=== PATIENT | female | born 1995 | race Caucasian/White ===

== ENCOUNTER 2019-05-06 20:20 | Emergency (ER) | payer BC ==
[2019-05-06] MEDS ORDERED: NS 0.9% 1000 ML** 2,000 ML IV ONE (20:42)
[2019-05-06] MEDS ORDERED: Famotidine IV* 10 MG/ML 2 ML (20 mg) IV ONE (20:42)
[2019-05-06] MEDS ORDERED: diPHENhydraMINE IV* 50 MG/ML 1 ml VIAL (BENADRYL) IV ONE (20:42)
[2019-05-06] MEDS ORDERED: methylPREDNISolone 125 MG* 2 ML VIAL IV ONE (20:42)
--- NOTE | 2019-05-06 20:50 | ED ---
Allergic Reaction/Systemic - HPI Summary HPI Summary: This patient is a 24 year old F presenting to [facility] with a chief complaint of allergic reaction occurring at 19:50. Pt has mass cell activation syndrome. Pt was on her way to the hospital to visit a friend when she started to feel tired. Pt reports stomach cramping, chest pain, throat tightness, itchiness and thats when she injected herself with the epi pen. Pt usually gets hives on face, and chest but she injected herself before their appearance. Pt went into her first anaphylactic reaction in March 2019. Since then went into anaphylaxis 8/ 9 times, in April. Pt has had one previous episode of recurring anaphylaxis in the beginning of April, where pt went into anaphylaxis 4 times in the span of 30 hours, was admitted to an ICU in [facility] where she is from and was diagnosed with vocal cord dysfunction. Pts doctor is from [facility]. Pt takes Famotidine 20 mg twice a day, and Ewa 360 mg twice a day, Omeprazole DR 20mg bid, Nystatin 500,000U bid, Wellbutrin 100mg ad, Propranolol 80mg q hs, OCP, hydroxyzine 50mg qhs, Effrexor ER 150mg or 75mg alternating 1 hs, Diltiazem 24HR ER 120mg, IC Cromolyn 100mg/5ml Tid ac and hs. Pt also takes albuterol inhaler prn or neb solution prn, propranolol 40mg if SVT sxs prn, and hyoscyamine 0.125mg tid prn. Pt always carries two Epipens. Home Medications Medication Instructions Recorded Confirmed Type EPINEPHrine [Epipen] 0.3 mg SUBCUT ONCE PRN #2 05/06/19 Rx auto.injct - History of Current Complaint Chief Complaint: EDAllergicReaction Time Seen by Provider: 05/06/19 20:36 Hx Obtained From: Patient Onset/Duration: Sudden Onset, Started minutes ago - 19:50, Resolved Timing: Lasting Minutes Severity Initially: Severe Severity Currently: Severe Pain Intensity: 8 Pain Scale Used: 0-10 Numeric Aggravating Factor(s): Nothing Alleviating Factor(s): Epinephrine Associated Signs And Symptoms: Positive: Abdominal Pain, Chest Pain, Difficulty Breathing, Other: - pos - itchiness - Allergies/Home Medications Allergies/Adverse Reactions: Allergies Allergy/AdvReac Type Severity Reaction Status Date / Time aripiprazole [From Abilify] Allergy Unknown Verified 05/06/19 20:29 Reaction Details nortriptyline Allergy Unknown Verified 05/06/19 20:29 Reaction Details omalizumab [From Xolair] Allergy Anaphylatic Verified 05/06/19 20:28 Shock PMH/Surg Hx/FS Hx/Imm Hx Previously Healthy: No Endocrine/Hematology History: Reports: Other Endocrine/Hematological Disorders - thrombocytopenia, leukopenia Cardiovascular History: Reports: Other Cardiovascular Problems/Disorders - Inappropriate Sinus Tachycardia Respiratory History: Reports: Hx Asthma GI History: Reports: Hx Gastroesophageal Reflux Disease, Hx Ulcer, Other GI Disorders - celiac ds History: Reports: Other Problems/Disorders - interstitial cystitis, ovarian cysts, pelvic congestion syndrome EENT History: Reports: Other - Vocal Cord Dysfunction, thymoma Neurological History: Reports: Other Neuro Impairments/Disorders - Vertigo Psychiatric History: Reports: Hx Anxiety, Hx Depression - Surgical History Surgical History: Yes Surgery Procedure, Year, and Place: Ear Tubes, 1999; Complete Hysterectomy and Salpingectomy 2017, upper endoscopies, bilat knee surgeries, D&C's, exploratory abdominal surgery, wisdom teet, thymoma core needle biopsy. Infectious Disease History: Yes Infectious Disease History: Denies: Traveled Outside the [place] in Last 30 Days Review of Systems Positive: Other - pos - itchiness, neg - hives ENT: Other - pos - throat tightness Positive: Chest Pain Respiratory: Negative Positive: Other - neg wheezes Positive: Abdominal Pain Positive: no symptoms reported Musculoskeletal: Negative Positive: Other - no urticaria . Negative: Rash Neurological: Other - dizziness Psychological: Normal All Other Systems Reviewed And Are Negative: Yes Physical Exam - Summary Physical Exam Summary: Appearance: well-appearing, no pain distress, obese, in no obvious distress Skin: Warm, color reflects adequate perfusion, dry, no urticaria, injection site of Epipen left lateral thigh Head: Normal Head/Face inspection, atraumatic Eyes: Conjunctiva clear ENT: Normal inspection. Pharynx clear, no swelling, uvula midline. Neck: Supple, no nodes, no JVD Respiratory: Lungs clear, normal breath sounds, no respiratory distress Cardio: RRR, No murmur, pulses normal, brisk capillary refill Abdomen: Soft, nontender Bowel sounds: Present Musculoskeletal: Strength Intact/ROM intact, no calf tenderness, no edema. Psychological: Normal Neuro: Alert, muscle tone normal, no focal deficit Triage Information Reviewed: Yes Vital Signs On Initial Exam: Initial Vitals Temp Pulse Resp BP Pulse Ox 97.5 F 110 20 150/97 98 05/06/19 20:20 05/06/19 20:20 05/06/19 20:20 05/06/19 20:20 05/06/19 20:20 Vital Signs Reviewed: Yes Diagnostics - Vital Signs Vital Signs Temp Pulse Resp BP Pulse Ox 05/06/19 20:20 97.5 F 110 20 150/97 98 - Laboratory Result Diagrams: 05/06/19 21:15 05/06/19 21:15 Lab Statement: Any lab studies that have been ordered have been reviewed, and results considered in the medical decision making process. Re-Evaluation - Re-Evaluation First Eval Re-Evaluation Time: 22:20 Change: Worse Comment: Pt states she is "itchy" again, slight throat tightness. No hives. Declines additional Epinephrine at this time. No uvula edema. Lungs clear. P 93. Pt advised to notify staff if sxs worsen. Allergic Reaction Course/Dx - Course Course Of Treatment: 24 yo F with hx mast cell activation syndrome, first dx'd in March 2019. Pt is managed by an pattern finisher in [facility] where she lives. Pt has had anaphylaxis 8-9 times since diagnosis. Pt had an ICU admission in early April x 3 days. She has never been intubated. Pt on allergy meds and famotidine to try to prevent this, but still gets sxs. Pt felt sxs tonight and self administered Epi-pen and took benadryl 100mg po. In ED pt had no hives, no chest pain, no throat tightness, no wheezes, and uvula was midline without edema. Pt was given benadryl 50mg IV, solumedrol 125mg IV, and famotidine 20mg IV. She also requested zofran, given 4mg IV. At 22:20 pt felt itchy but declined additional medications. Care signed out to Dr. Brizuela, pending additional observation. Pt states she often is observed for 6 hrs in an ED. - Diagnoses Differential Diagnosis/HQI/PQRI: Positive: Anaphylaxis, Bronchospasm, Urticaria Provider Diagnoses: Mast cell activation syndrome Discharge - Sign-Out/Discharge Documenting (check all that apply): Sign-Out Patient - Patient is signed out to Dr. Brizuela at shift change at 2200, pending observation. Signing out patient TO: Lorenza Brizuela - 22:00 05/06/19, pending observation for anaphylaxis - Discharge Plan Prescriptions: EPINEPHrine [Epipen] 0.3 mg SUBCUT ONCE PRN #2 auto.injct PRN Reason: Allergy Symptoms Referrals: [facility] [employer] [Outside] - If Needed () Additional Instructions: Have definite follow up with your pattern finisher in [place] as soon as you get home. Return to the ER if any new or worsening symptoms. - Attestation Statements Document Initiated by Cedric: Yes Documenting Scribe: Niesha Fulton Provider For Whom Cedric is Documenting (Include Credential): Dr. Jessica Arguelles MD Scribe Attestation: Niesha Cárdenas scribed for Dr. Jessica Arguelles MD on 05/06/19 at 2229. Scribe Documentation Reviewed: Yes Provider Attestation: The documentation as recorded by the Niesha rivers accurately reflects the service I personally performed and the decisions made by me, Dr. Jessica Arguelles MD Status of Scribe Document: Viewed
[2019-05-06] MEDS ORDERED: Ondansetron INJ* 2 MG/ML VIAL IV ONE (20:54)
[2019-05-06 21:24] LABS: ABS Basophils 0.1 10^3/ul (0-0.2); ABS Monocytes 0.3 10^3/ul (0-0.8); ABS Neutrophils 7.8 10^3/ul (1.5-7.7); Hematocrit 42 % (35-47); Hemoglobin 13.9 g/dL (12.0-16.0); Lymphocyte % 19.8 %; Mean Corpuscular HGB Conc 33 g/dL (31-36); Mean Corpuscular Hemoglobin 29 pg (27-31); Mean Corpuscular Volume 87 fL (80-97); Mean Platelet Volume 7.8 fL (7.4-10.4); Nucleated Red Blood Cells % 0.1; Platelet Count 427 10^3/uL (150-450); Red Blood Count 4.82 10^6 /uL (3.70-4.87); Red Cell Distribution Width 14 % (10-15); White Blood Count 10.3 10^3/uL (3.5-10.8)
[2019-05-06 21:41] LABS: Albumin 4.4 g/dL (3.2-5.2); Albumin/Globulin Ratio 1.4 (1-3); BUN/Creatinine Ratio 23.9 (8-20); C Reactive Protein 4.15 mg/L (<8.01); Calcium 9.4 mg/dL (8.6-10.3); EGFR African American 123.4 (>60); Globulin 3.1 g/dL (2-4); Potassium 4.6 mmol/L (3.5-5.0); Total Bilirubin 0.3 mg/dL (0.2-1.0); Total Protein 7.5 g/dL (6.4-8.9)
[2019-05-06 21:47] LABS: HCG Pregnancy 1.4 mIU/mL
[2019-05-06] MEDS ORDERED: EPINEPHRINE 1 MG/ML 1 ML VIAL IM ONE (23:28)
--- NOTE | 2019-05-07 01:21 | ED ---
Progress - Progress Note Progress Note: Receiving sign-out from Dr. Arguelles at 2200. The patient feels better and can be discharged. A plan for discharge was discussed with the patient and she was agreeable with this plan. Re-Evaluation - Re-Evaluation First Eval Re-Evaluation Time: 22:20 Change: Worse Comment: Pt states she is "itchy" again, slight throat tightness. No hives. Declines additional Epinephrine at this time. No uvula edema. Lungs clear. P 93. Pt advised to notify staff if sxs worsen. Course/Dx - Course Course Of Treatment: Receiving sign-out from Dr. Arguelles at 2200. The patient feels better and can be discharged. A plan for discharge was discussed with the patient and she was agreeable with this plan. - Diagnoses Provider Diagnoses: Allergic reaction Discharge - Sign-Out/Discharge Documenting (check all that apply): Patient Departure - Discharge Patient Received Moderate/Deep Sedation with Procedure: No - Discharge Plan Condition: Stable Disposition: HOME Prescriptions: EPINEPHrine [Epipen] 0.3 mg SUBCUT ONCE PRN #2 auto.injct PRN Reason: Allergy Symptoms Patient Education Materials: General Allergic Reaction (ED) Referrals: [facility] [Outside] - If Needed () Additional Instructions: Have definite follow up with your watch hairspring assembler in [place] as soon as you get home. Return to the ER if any new or worsening symptoms. - Attestation Statements Document Initiated by Scribe: Yes Documenting Scribe: Frandy Rousseau Provider For Whom Rajibe is Documenting (Include Credential): Lorenza Brizuela MD Scribe Attestation: I, Frandy Rousseau, scribed for Lorenza Brizuela MD on 05/07/19 at 0121. Status of Scribe Document: Ready
[2019-05-07 01:33] VITALS: BP 128/80
== END 2019-05-07 01:31 | disposition home or self-care (01) ==
LOC: ED 20:20
DX: D89.40 Mast cell activation, unspecified (principal); T78.40XA Allergy, unspecified, initial encounter; X58.XXXA Exposure to other specified factors, initial encounter; D69.6 Thrombocytopenia, unspecified; K21.9 Gastro-esophageal reflux disease without esophagitis; F41.9 Anxiety disorder, unspecified; F32.9 Major depressive disorder, single episode, unspecified; Z79.899 Other long term (current) drug therapy; Z88.8 Allergy status to other drugs, medicaments and biological substances
CPT/HCPCS: 36415; 80053; 83605; 84702; 85025; 86140; 96372; 96374; 96375; 99283; J1200; J2405; J2930